=== PATIENT | female | born 1960 | race Caucasian/White ===

== ENCOUNTER 2016-04-23 | Outpatient (CLI) | payer BC | END 2016-04-23 19:25 | disposition EMS.NT ==

== ENCOUNTER 2016-04-23 20:20 | Emergency (ER) | payer BC | END 2016-04-23 22:18 | disposition home or self-care (01) | DX: R07.9 Chest pain, unspecified (principal); F41.9 Anxiety disorder, unspecified ==

== ENCOUNTER 2016-04-24 20:11 | Emergency (ER) | payer BC ==
[2016-04-24] MEDS ORDERED: SODIUM CHLORIDE 0.9% 1,000 ML IV ONE (20:33)
== END 2016-04-24 22:20 | disposition home or self-care (01) ==
DX: E86.0 Dehydration (principal); M62.838 Other muscle spasm; M54.2 Cervicalgia; F41.9 Anxiety disorder, unspecified; F17.200 Nicotine dependence, unspecified, uncomplicated